=== PATIENT | female | born 1995 | race African-American/Black ===

== ENCOUNTER 2016-10-26 09:31 | Emergency (ER) | payer MEDICAID ==
[~2016-10-26] VITALS: Ht 162.6 cm; Wt 72.6 kg
[2016-10-26 09:49] VITALS: BP 127/83
[2016-10-26] MEDS ORDERED: cefTRIAXone SOD 1,000 MG VL IM ONE (10:15)
[2016-10-26] MEDS ORDERED: KETOROLAC TROMETH 60MG/2ML VIAL IM ONE (10:15)
== END 2016-10-26 11:44 | disposition home or self-care (01) ==
LOC: ER 09:31
DX: J02.9 Acute pharyngitis, unspecified (principal); A08.4 Viral intestinal infection, unspecified; F17.210 Nicotine dependence, cigarettes, uncomplicated
CPT/HCPCS: 87070; 87880; 96372; 99284; J0696; J1885

== ENCOUNTER 2024-06-07 02:50 | Emergency (ER) | payer MEDICAID ==
[~2024-06-07] VITALS: Ht 162.6 cm; Wt 104.9 kg
[~2024-06-07 02:50] MED LIST: ALPR0.5T PO; NITR-87 PO
[2024-06-07 03:02] VITALS: BP 153/99; PULSE 99; RESP 15; TEMP 98.7; O2SAT 96
[2024-06-07] MEDS: OXYCODONE W/ ACETAMINOPHEN 5/325MG TABLET PO ONE (03:49)
--- NOTE | 2024-06-07 04:22 | DVH ---
CLINICAL INDICATION: L shoulder pain TECHNIQUE: Left XY L SHOULDER 2+ VIEW XRAY Comparison: None FINDINGS/IMPRESSION: : Mild diastasis/ subluxation of the acromioclavicular joint, correlation with the point of tenderness and patient's symptoms is needed. The glenohumeral joint is intact.
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
== END 2024-06-07 05:07 | disposition home or self-care (01) ==
LOC: ER 02:50
DX: S43.112A Subluxation of left acromioclavicular joint, initial encounter (principal); F17.210 Nicotine dependence, cigarettes, uncomplicated; Z79.899 Other long term (current) drug therapy; V89.2XXA Person injured in unspecified motor-vehicle accident, traffic, initial encounter; Y93.89 Activity, other specified; Y92.89 Other specified places as the place of occurrence of the external cause; Y99.8 Other external cause status
CPT/HCPCS: 73030

== ENCOUNTER 2024-12-15 00:14 | Emergency (ER) | payer MEDICAID ==
[~2024-12-15] VITALS: Ht 162.6 cm; Wt 103.4 kg
--- NOTE | 2024-12-15 01:37 | DVH ---
EXAM: CT HEAD WITHOUT CONTRAST INDICATION: headache TECHNIQUE: CT of the head without intravenous contrast. Radiation Dose : 1. Head: CT Dose: CTDI volume is 56.5 mGy. Dose-length product is 1000.41 mGy*cm The dose indicators for CT are the volume Computed Tomography (CT) Dose Index (CTDIvol) and the Dose Length Product (DLP), and are measured in units of mGy and mGy-cm, respectively. These indicators are not patient dose, but values generated from the CT scanner acquisition factors. The report includes radiation exposure data for exposures received during this examination. COMPARISON: None FINDINGS: There is no evidence of acute intracranial hemorrhage, extra-axial collection, mass effect, midline s hift, herniation or hydrocephalus. The ventricles, sulci and cisterns are age appropriate. The morrell-white differentiation is intact. The visualized paranasal sinuses and mastoid air cells are clear. The surrounding soft tissues and osseous structures are unremarkable. IMPRESSION: 1. No acute intracranial abnormality. Radiation optimization: All CT scans at this facility use at least one of these dose optimization andreas hniques: automated exposure control mA and/or kV adjustment per patient size (includes targeted exam s where dose is matched to clinical indication) or iterative reconstruction.
--- NOTE | 2024-12-15 01:46 | ED.PDOC ---
History of Present Illness HPI Comments 29-year-old female presents with chief complaint of nonradiating, right-sided headache. 3x day intermittent history endorse many following initial on provoke, atraumatic onset. No relief of [id number]-[id number] pain medications. Recent notable history of tooth abscess recovery. Patient finish antibiotic course for said abscess 2 days ago. Denial of any further acute symptoms. Chief Complaint: Headache Time Seen by MD: 01:00 Primary Care Provider: Unknown Reviewed Notes: Nurses Notes, Medications, Allergies Allergies: Coded Allergies: NO KNOWN ALLERGIES (Unverified , 10/26/16) Home Meds Active Scripts Clindamycin HCl (Clindamycin Hydrochloride) 300 Mg Cap, 300 MG PO BID for 7 Days, #14 CAP Prov:CORKY ASHBY MD 12/15/24 Gabapentin (Once-Daily) (Gabapentin) 300 Mg Tab, 300 MG PO Q6HP PRN, #60 TAB Prov:CORKY ASHBY MD 12/15/24 Alprazolam (Xanax) 0.5 Mg Tb, 1 TAB PO BID, #10 TAB Prov:MAURICE ABDUL PAC 09/24/22 Nitrofurantoin Monohydrate Mac (Macrobid) 100 Mg Cap, 100 MG PO BID for 5 Days, #10 CAP Prov:MAURICE ABDUL PAC 09/24/22 Information Source: Patient Mode of Arrival: Ambulatory Past Medical History PAST MEDICAL HISTORY: Anxiety Surgical History: Denies all surgeries 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 MILL 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 Family History Family History: No family hx of Cancer, No family hx of DM, No family hx of Heart erica Social History Smoker: Cigarettes, Other Alcohol: Occasionally Drugs: Denies Drug Use Lives In: Home All Other Systems: Reviewed and Negative (as per HPI) Physical Exam General Appearance: Mild Distress, Obese HEENT: Normal ENT Inspection, Pharynx Normal, TMs Normal Neck: Full Range of Motion, Non-Tender, Normal, Normal Inspection Respiratory: Chest Non-Tender, Lungs Clear, No Accessory Muscle Use, No Respiratory Distress, Normal Breath Sounds Cardiovascular: No Edema, No JVD, No Murmur, No Gallop, Normal Peripheral Pulses, Regular Rate/Rhythm Breast Exam: Deferred Gastrointestinal: No Organomegaly, Non Tender, No Pulsatile Mass, Normal Bowel Sounds, Soft Genitalia: Deferred Pelvic: Deferred Rectal: Deferred Extremities: No calf tenderness, Normal capillary refill, Normal inspection, Normal range of motion, Non-tender, No pedal edema Musculoskeletal : Apperance: Normal Neurologic: Alert, 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 Was a procedure done?: No Differential Dx Considerations may include: Migraines, tension headache, electrolyte imbalance, dehydration, viral syndrome, among others X-Ray, Labs, Meds, VS Vital Signs Date Time Temp Pulse Resp B/P (MAP) Pulse Ox O2 Delivery O2 Flow Rate FiO2 12/15/24 04:20 79 18 96 Room Air 12/15/24 04:15 98.4 79 18 139/104 (116) 96 98.4 12/15/24 00:15 98.1 78 16 155/98 98 98.1 [place] [address] Ph: [phone] DIAGNOSTIC IMAGING Diagnostic Imaging Report : [id number] Signed PATIENT: MARCIE ARGUELLES ACCT: [id number] UNIT: [id number] : 1995 LOC: ER ROOM / BED: / AGE / SEX: 29 / F ADM STATUS: REG ER SERVICE 0100 ORDERING PHYSICIAN: CORKY ASHBY MD PROCEDURE(s): HWOCT - HEAD WITHOUT CONTRAST REASON: headache ORDER NUMBER(s): [id number], ACCESSION NUMBER(s): [id number] EXAM: CT HEAD WITHOUT CONTRAST INDICATION: headache TECHNIQUE: CT of the head without intravenous contrast. Radiation Dose : 1. Head: CT Dose: CTDI volume is 56.5 mGy. Dose-length product is 1000.41 mGy*cm The dose indicators for CT are the volume Computed Tomography (CT) Dose Index (CTDIvol) and the Dose Length Product (DLP), and are measured in units of mGy and mGy-cm, respectively. These indicators are not patient dose, but values generated from the CT scanner acquisition factors. The report includes radiation exposure data for exposures received during this examination. COMPARISON: None FINDINGS: There is no evidence of acute intracranial hemorrhage, extra-axial collection, mass effect, midline shift, herniation or hydrocephalus. The ventricles, sulci and cisterns are age appropriate. The morrell-white differentiation is intact. The visualized paranasal sinuses and mastoid air cells are clear. The surrounding soft tissues and osseous structures are unremarkable. IMPRESSION: 1. No acute intracranial abnormality. Radiation optimization: All CT scans at this facility use at least one of these dose optimization techniques: automated exposure control mA and/or kV adjustment per patient size (includes targeted exams where dose is matched to clinical indication) or iterative reconstruction. ATED BY: YEMI PAZ MD DICTATED DATE/TIME: 12/15/24134 SIGNED BY: YEMI PAZ MD SIGNED DATE/TIME: 12/15/24134 CC: Time of 1ST Reevaluation: 01:30 Reevaluation 1ST: Unchanged Patient Education/Counseling: Diagnosis, Treatment, Need For Follow Up Family Education/Counseling: No Family Present SEPSIS Sepsis Screen Date sepsis recognized/suspect: Dec 15, 2024 Time Sepsis recognized/suspect: 0015 Recent Procedure: No On Antibiotic Therapy: No Respiratory Rate >20: No Heart Rate >90: No Temp<36 C (96.8 F) or >38.3 C: No SBP <90 or MAP <65 mmHG: No New Acute Mental Status Change: No Is the patient on CPAP, BIPAP,: No Physician Orders Head Without Contrast (12/15/24 01:00) Vital Signs Date Time Temp Pulse Resp B/P (MAP) Pulse Ox O2 Delivery O2 Flow Rate FiO2 12/15/24 04:20 79 18 96 Room Air 12/15/24 04:15 98.4 79 18 139/104 (116) 96 98.4 12/15/24 00:15 98.1 78 16 155/98 98 98.1 Departure 1 Departure Time of Disposition: 03:30 Impression: Primary Impression: Headache Additional Impression: Dental abscess Disposition: HOME / SELF CARE / HOMELESS Condition: Stable e-Prescriptions Clindamycin HCl (Clindamycin Hydrochloride) 300 Mg Cap 300 MG PO BID for 7 Days, #14 CAP Prov: CORKY ASHBY MD 12/15/24 Gabapentin (Once-Daily) (Gabapentin) 300 Mg Tab 300 MG PO Q6HP PRN, #60 TAB Prov: CORKY ASHBY MD 12/15/24 Discharged With: Self Critical Care Note Critical Care Time?: No Stability Stability form required: No Heart Score Heart Score: Heart Score Response (Comments) Value History N/A 0 EKG N/A 0 Age N/A 0 Risk Factors N/A 0 Troponin N/A 0 Total 0 I personally scribed for CORKY ASHBY MD ([email or web address]) on 12/15/24 at 01:46. Electronically submitted by Russel Vasques ([email or web address]). I personally scribed for CORKY ASHBY MD ([email or web address]) on 12/15/24 at 02:08. Electronically submitted by Russel Vasques ([email or web address]). CORKY ASHBY MD Dec 15, 2024 01:46
[2024-12-15] MEDS ORDERED: GABA300T4 PO (03:12)
[2024-12-15] MEDS ORDERED: CLIN-203 PO (03:28)
[2024-12-15 04:15] VITALS: BP 139/104; TEMP 98.4
[2024-12-15 04:20] VITALS: PULSE 79; RESP 18; O2SAT 96
== END 2024-12-15 04:20 | disposition home or self-care (01) ==
LOC: ER 00:14
DX: K04.7 Periapical abscess without sinus (principal); F41.9 Anxiety disorder, unspecified; F17.210 Nicotine dependence, cigarettes, uncomplicated; Z79.899 Other long term (current) drug therapy
CPT/HCPCS: 70450

== ENCOUNTER 2025-03-07 16:47 | Emergency (ER) | payer MEDICAID ==
[~2025-03-07] VITALS: Ht 162.6 cm; Wt 97.2 kg
[~2025-03-07 16:47] MED LIST changes: +CLIN-203 PO; +GABA300T4 PO
--- NOTE | 2025-03-07 17:00 | ECG ---
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
--- NOTE | 2025-03-07 19:14 | ED.PDOC ---
HPI Comments 29-year-old female who came to ER for chest pains. Patient denies any medical problems. States for the past 2 days, she has been experiencing intermittent episodes of sharp left-sided chest pains, sharp, stabbing, radiating to her left shoulder and left arm. Denies any prior history of chest pains. Blood pressure upon arrival was 128/73 mm Hg Chief Complaint: Chest Pain Time Seen by MD: 19:14 Primary Care Provider: Unknown Reviewed Notes: Nurses Notes Allergies: Coded Allergies: NO KNOWN ALLERGIES (Unverified , 10/26/16) Home Meds Active Scripts Clindamycin HCl (Clindamycin Hydrochloride) 300 Mg Cap, 300 MG PO BID for 7 Days, #14 CAP Prov:CORKY ASHBY MD 12/15/24 Gabapentin (Once-Daily) (Gabapentin) 300 Mg Tab, 300 MG PO Q6HP PRN, #60 TAB Prov:CORKY ASHBY MD 12/15/24 Alprazolam (Xanax) 0.5 Mg Tb, 1 TAB PO BID, #10 TAB Prov:MAURICE ABDUL PAC 09/24/22 Nitrofurantoin Monohydrate Mac (Macrobid) 100 Mg Cap, 100 MG PO BID for 5 Days, #10 CAP Prov:MAURICE ABDUL PAC 09/24/22 Information Source: Patient Mode of Arrival: Ambulatory Severity: Moderate Past Medical History PAST MEDICAL HISTORY: Anxiety Surgical History: Denies all surgeries 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 Family History Family History: No family hx of Cancer, No family hx of DM, No family hx of Heart erica Social History Smoker: Cigarettes, Other Alcohol: Occasionally Drugs: Denies Drug Use Lives In: Home Constitutional: denies: chills, diaphoresis, fatigue, fever, malaise, sweats, weakness, others EENTM: denies: blurred vision, double vision, ear bleeding, ear discharge, ear drainage, ear pain, ear ringing, eye pain, eye redness, hearing loss, mouth pain, mouth swelling, nasal discharge, nose bleeding, nose congestion, nose pain, photophobia, tearing, throat pain, throat swelling, voice changes, others Respiratory: denies: cough, hemoptysis, orthopnea, SOB at rest, shortness of breath, SOB with excertion, stridor, wheezing, others Cardiovascular: reports: chest pain, left arm pain; denies: dizzy spells, diaphoresis, Dyspnea on exertion, edema, irregular heart beat, lightheadedness, palpitations, PND, syncope, others Gastrointestinal: denies: abdomen distended, abdominal pain, blood streaked bowels, constipated, diarrhea, dysphagia, difficulty swallowing, hematemesis, melena, nausea, poor appetite, poor fluid intake, rectal bleeding, rectal pain, vomiting, others Genitourinary: denies: abnormal vagina bleeding, burning, dyspareunia, dysuria, flank pain, frequency, hematuria, incontinence, pain, , vagina discharge, urgency, others Neurological: denies: dizziness, fainting, headache, left sided numbness, left sided weakness, numbness, paresthesia, pre-existing deficit, right sided numbness, right sided weakness, seizure, speech problems, tingling, tremors, weakness, others Musculoskeletal: denies: back pain, gout, joint pain, joint swelling, muscle pain, muscle stiffness, neck pain, others Integumetry: denies: bruises, change in color, change in hair/nails, dryness, laceration, lesions, lumps, rash, wounds, others Allergic/Immunocompromised: denies: Difficulty Healing, Frequent Infections, Hives, Itching, others Hematologic/Lymphatic: denies: anemia, blood clots, easy bleeding, easy bruising, swollen glands, others Endocrine: denies: excessive hunger, excessive sweating, excessive thirst, excessive urination, flushing, intolerance to cold, intolerance to heat, unexplained weight gain, unexplained weight loss, others Psychiatric: denies: anxiety, bipolar disorder, depression, hopeless, panic disorder, schizophrenia, sleepless, suicidal, others Physical Exam General Appearance: No Apparent Distress, Normal HEENT: Normal ENT Inspection, Pharynx Normal, TMs Normal Neck: Full Range of Motion, Non-Tender, Normal, Normal Inspection Respiratory: Chest Non-Tender, Lungs Clear, No Accessory Muscle Use, No Respiratory Distress, Normal Breath Sounds Cardiovascular: No Edema, No JVD, No Murmur, No Gallop, Normal Peripheral Pulses, Regular Rate/Rhythm Breast Exam: Deferred Gastrointestinal: No Organomegaly, Non Tender, No Pulsatile Mass, Normal Bowel Sounds, Soft Genitalia: Deferred Pelvic: Deferred Rectal: Deferred Extremities: No calf tenderness, Normal capillary refill, Normal inspection, Normal range of motion, Non-tender, No pedal edema Musculoskeletal : Apperance: Normal 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 Was a procedure done?: No CP Differential Dx Differential Diagnosis: Angina, Anxiety / Panic Attack, Pulmonary Embolus Differential Diagnosis: Angina, Chest Wall Pain, Costochondritis, Esophageal reflux/spasm, Gastritis X-Ray, Labs, Meds, VS Vital Signs Date Time Temp Pulse Resp B/P (MAP) Pulse Ox O2 Delivery O2 Flow Rate FiO2 03/07/25 21:45 Room Air* 0 21 03/07/25 21:44 97.7 71 14 122/80 (94) 99 97.7 03/07/25 19:14 80 03/07/25 16:54 80 03/07/25 16:49 98.1 91 16 128/73 99 98.1 Lab Test 03/07/25 20:29 03/07/25 19:33 Range/Units Troponin I High Sensitivity < 3 L < 3 L </=34 ng/L White Blood Count 6.4 4.4-10.8 10^3/uL Red Blood Count 4.65 4.0-5.20 10^6/uL Hemoglobin 14.9 12.2-16.2 g/dL Hematocrit 42.6 36.0-46.0 % Mean Corpuscular Volume 91.5 80.0-100.0 fL Mean Corpuscular Hemoglobin 32.1 H 28.0-32.0 pg Mean Corpuscular Hemoglobin Concent 35.1 32.0-36.0 g/dL Red Cell Distribution Width 15.3 H 11.8-14.3 % Platelet Count 325 140-450 10^3/uL Mean Platelet Volume 7.3 6.9-10.8 fL Neutrophils (%) (Auto) 51.7 37.0-80.0 % Lymphocytes (%) (Auto) 40.0 10.0-50.0 % Monocytes (%) (Auto) 6.5 0.0-12.0 % Eosinophils (%) (Auto) 1.1 0.0-7.0 % Basophils (%) (Auto) 0.7 0.0-2.0 % Neutrophils # (Auto) 3.3 1.6-8.6 10 ^3/uL Lymphocytes # (Auto) 2.6 0.4-5.4 10 ^3/uL Monocytes # (Auto) 0.4 0-1.3 10 ^3/uL Eosinophils # (Auto) 0.1 0-0.8 10 ^3/uL Basophils # (Auto) 0 0-0.2 10 ^3/uL Nucleated Red Blood Cells 0.2 % Sodium Level 140 136-145 mmol/L Potassium Level 3.9 3.5-5.1 mmol/L Chloride Level 106 98-107 mmol/L Carbon Dioxide Level 24 20-31 mmol/L Anion Gap 10 5-15 Blood Urea Nitrogen 5 L 9-23 mg/dL Creatinine 0.80 0.550-1.02 mg/dL Glomerular Filtration Rate Calc 102 >90 mL/min BUN/Creatinine Ratio 6.3 L 10.0-20.0 Serum Glucose 86 74-106 mg/dL Calcium Level 9.6 8.7-10.4 mg/dL Total Bilirubin 1.0 0.2-1.0 mg/dL Aspartate Amino Transferase (AST) 31 13-40 U/L Alanine Aminotransferase (ALT) 21 7-40 U/L Alkaline Phosphatase 87 46-116 U/L Total Protein 7.9 5.7-8.2 g/dL Albumin 4.5 3.2-4.8 g/dL Time of 1ST Reevaluation: 19:11 Reevaluation 1ST: Unchanged Patient Education/Counseling: Diagnosis, Treatment Family Education/Counseling: No Family Present SEPSIS Sepsis Screen Date sepsis recognized/suspect: Mar 07, 2025 Time Sepsis recognized/suspect: 1650 Recent Procedure: No On Antibiotic Therapy: No Respiratory Rate >20: No Heart Rate >90: No Temp<36 C (96.8 F) or >38.3 C: No SBP <90 or MAP <65 mmHG: No New Acute Mental Status Change: No Is the patient on CPAP, BIPAP,: No Physician Orders Electrocardigram (03/07/25 17:59) Electrocardigram (03/07/25 19:59) Chest Xray 1 View (03/07/25 19:10) Vital Signs Date Time Temp Pulse Resp B/P (MAP) Pulse Ox O2 Delivery O2 Flow Rate FiO2 03/07/25 21:45 Room Air* 0 21 03/07/25 21:44 97.7 71 14 122/80 (94) 99 97.7 03/07/25 19:14 80 03/07/25 16:54 80 03/07/25 16:49 98.1 91 16 128/73 99 98.1 Laboratory Tests Test 03/07/25 19:33 White Blood Count 6.4 10^3/uL (4.4-10.8) Departure 1 Departure Time of Disposition: 21:00 Impression: Primary Impression: Anxiety Additional Impression: Atypical chest pain Disposition: HOME / SELF CARE / HOMELESS Condition: Stable Discharged With: Self Critical Care Note Critical Care Time?: No Stability Stability form required: No Heart Score Heart Score: Heart Score Response (Comments) Value History Slightly Suspicious 0 EKG Normal 0 Age <45 0 Risk Factors No known risk factors 0 Troponin Normal limit 0 Total 0 I personally scribed for CORKY ASHBY MD ([email or web address]) on 03/07/25 at 19:14. Electronically submitted by Mateo Polanco ([email or web address]). CORKY ASHBY MD Mar 07, 2025 19:14
--- NOTE | 2025-03-07 19:40 | DVH ---
CHEST RADIOGRAPH REASON FOR EXAM: chest pain COMPARISON: XY CHEST PORTABLE on DOS: 09/28/23 TECHNIQUE: One view of the chest is provided FINDINGS: The cardiomediastinal silhouette is within normal limits for technique. There is no focal airspace disease. There is no significant pleural effusion. No acute bony abnormality is identified. IMPRESSION: No radiographic evidence of acute cardiopulmonary process.
[2025-03-07 19:50] LABS: Hematocrit 42.6 % (36.0-46.0); Hemoglobin 14.9 g/dL (12.2-16.2); Mean Corpuscular Hemoglobin 32.1 pg (28.0-32.0); Mean Corpuscular Volume 91.5 fL (80.0-100.0); Nucleated Red Blood Cells % 0.2 %
[2025-03-07 20:07] LABS: Alanine Aminotransferase 21 U/L (7-40); Albumin 4.5 g/dL (3.2-4.8); Alkaline Phosphatase 87 U/L (46-116); Anion Gap 10 (5-15); BUN/Creatinine Ratio 6.3 (10.0-20.0); Calcium 9.6 mg/dL (8.7-10.4); Carbon Dioxide 24 mmol/L (20-31); Chloride 106 mmol/L (98-107); Glucose 86 mg/dL (74-106); Potassium 3.9 mmol/L (3.5-5.1); Sodium 140 mmol/L (136-145); Total Protein 7.9 g/dL (5.7-8.2)
[2025-03-07 20:08] LABS: Bilirubin, Total 1.0 mg/dL (0.2-1.0)
[2025-03-07 20:10] LABS: Blood Urea Nitrogen 5 mg/dL (9-23)
[2025-03-07 21:44] VITALS: BP 122/80; PULSE 71; RESP 14; TEMP 97.7; O2SAT 99
== END 2025-03-07 21:47 | disposition home or self-care (01) ==
LOC: ER 16:47
DX: F41.9 Anxiety disorder, unspecified (principal); R07.89 Other chest pain; F17.210 Nicotine dependence, cigarettes, uncomplicated
CPT/HCPCS: 36415; 71045; 80053; 84484; 85025; 93005